=== PATIENT | female | born 1990 | race Caucasian/White ===

== ENCOUNTER → 2018-01-01 14:39 | Outpatient (CLI) | payer OTHER, SELFPAY ==
[2018-01-04 14:10] LABS: HPV Reflexed? NOT INDICATED
== END ==
PROVIDERS: Visit Provider Obstetrics & Gynecology
DX: Z12.4 Encounter for screening for malignant neoplasm of cervix (principal); Z12.72 Encounter for screening for malignant neoplasm of vagina
CPT/HCPCS: 88175; G0145

== ENCOUNTER → 2018-08-19 16:07 | Outpatient (CLI) | payer OTHER, SELFPAY ==
[2018-08-19 17:28] LABS: hCG Titer Quant., Serum 2 mIU/mL (<9 non-preg)
== END ==
PROVIDERS: Visit Provider Obstetrics & Gynecology
DX: N91.2 Amenorrhea, unspecified (principal)
CPT/HCPCS: 36415; 84702

== ENCOUNTER 2018-12-26 15:54 | Emergency (ER) | payer OTHER, SELFPAY ==
[2018-12-26 15:55] VITALS: BP 116/67; PULSE 74; RESP 16; TEMP 37.2; O2SAT 100
--- NOTE | 2018-12-26 16:30 | ED.VISSUMM ---
- ER Visit Summary Date of Service: 12/26/18 Chief Complaint: Right chest wall pain History of Present Illness: The patient is a 28 F who is on Augmentin for bursitis presents with right sided chest wall pain for 2-3 days. This is pleuritic. She has no fever or chills. She has no back pain. She has no nausea vomiting or epigastric pain. She has no leg pain calf pain or hemoptysis. Physical Examination: Patient has some upper airway congestion, she has clear lungs bilaterally she has reproducible chest wall pain right rib region. Clear lungs bilaterally. She is soft and nontender abdomen. Emergency Department Course and Treatment: Patient does not have any signs or symptoms of PE. Her lungs are clear. She likely has pleurisy. She will be treated with Toradol and Naprosyn for home. Is reassured. Discharge stable condition Impression: Pleurisy This note was generated with [employer] dictation software. It may contain incorrect words, spelling, and punctuation that were not noted in review of the chart prior to signing ED Disposition - Plan for ED Patient: Disposition: Home or Assisted Living Instructions: ED Chest Pain Pleurisy Prescriptions: Naproxen [Naprosyn] 500 mg PO BID PRN #20 tab Referrals: Care Physician,No Primary [Primary Care Provider] - 3-5 Days
--- NOTE | 2018-12-26 16:34 | ED.DCSUM_ITS ---
- ER Visit Summary Date of Service: 12/26/18 Chief Complaint: Right chest wall pain History of Present Illness: The patient is a 28 F who is on Augmentin for bursitis presents with right sided chest wall pain for 2-3 days. This is pleuritic. She has no fever or chills. She has no back pain. She has no n ausea vomiting or epigastric pain. She has no leg pain calf pain or hemoptysis. Physical Examination: Patient has some upper airway congestion, she has clear lungs bilaterally she has reproducible chest wall pain right rib region. Clear lungs bilaterally. She is soft and nontender abdomen. Emergency Department Course and Treatment: Patient does not have any signs or symptoms of PE. Her lungs are clear. She likely has pleurisy. She will be treated with Toradol and Naprosyn for home. Is reassured. Discharge stable condition Impression: Pleurisy This note was generated with [employer] dictation software. It may contain incorrect words, spelling, and punctuation that were not noted in review of the chart prior to signing ED Disposition - Plan for ED Patient: Disposition: Home or Assisted Living Instructions: ED Chest Pain Pleurisy Prescriptions: Naproxen [Naprosyn] 500 mg PO BID PRN #20 tab Referrals: Care Physician,No Primary [Primary Care Provider] - 3-5 Days
[2018-12-26] MEDS: Ketorolac 30 MG/ML Syringe IM (17:16)
[2018-12-26 17:36] VITALS: PULSE 89; RESP 14; O2SAT 100
== END 2018-12-26 17:36 | disposition home or self-care (01) ==
PROVIDERS: Emergency Provider Emergency Medicine
DX: R09.1 Pleurisy (principal); M71.9 Bursopathy, unspecified; Z79.2 Long term (current) use of antibiotics
CPT/HCPCS: 96372; 99283

== ENCOUNTER → 2019-01-02 14:05 | Outpatient (CLI) | payer OTHER, SELFPAY ==
[2019-01-07 15:26] LABS: HPV Reflexed? NOT INDICATED
== END ==
PROVIDERS: Visit Provider Obstetrics & Gynecology
DX: Z12.4 Encounter for screening for malignant neoplasm of cervix (principal)
CPT/HCPCS: 88175; G0145

== ENCOUNTER → 2019-06-18 | Outpatient (CLI) | payer OTHER, SELFPAY ==
[2019-06-18 12:21] VITALS: BMI 18.3
[2019-06-18 13:28] LABS: Absolute Lymphocyte Count 2.02 X10^3/uL (0.83-4.51); Absolute Neutrophil Count 4.6 X10^3/uL (2.0-7.7); Basophil# 0.02 X10^3/uL; Basophil% 0.3 % (0-1); Eosinophil# 0.04 X10^3/uL; Eosinophils% 0.6 % (0-5); Hematocrit 37.1 % (37-47); Hemoglobin 12.3 g/dL (12.0-15.0); Lymphocyte # 2.02 X10^3/ul (4.0); Lymphocyte % 28.5 % (19-41); Mean Corp Hgb Conc 33.2 g/dL (32-36); Mean Corpuscular Hgb 29.3 pg (27.0-32.0); Mean Corpuscular Volume 88.3 fL (81-99); Mean Platelet Vol. 10.4 fl (6.2-12.0); Monocyte# 0.42 X10^3/uL; Monocyte% 5.9 % (0-10); NRBC Flagged by Analyzer 0 % (0-5); Neutrophil # 4.56 X10^3/uL (2.7-7.7); Neutrophil % 64.4 % (47-70); Platelet Count 233 K/mm3 (150-450); RBC Distribution Width SD 42.2 fl (35.1-43.9); White Blood Count 7.1 K/mm3 (4.4-11.0)
[2019-06-18 14:42] LABS: HIV - WCH Non-Reactive (Nonreactive); Rubella IgG 90.9 IU/mL
[2019-06-18 15:28] LABS: Chlamydia Trachomatis by PCR Negative (Negative); Neisserai gonorrhoeae by PCR Negative (Negative); Probe Check PASS; Sample Adequacy Control PASS; Specimen Processing Control PASS
[2019-06-20 02:06] LABS: Rapid Plasmin Reagin (RPR) NONREACTIVE (NONREACTIVE)
== END | disposition home or self-care (01) ==
PROVIDERS: Referring Provider Nurse Practitioner Women's Health; Visit Provider Nurse Practitioner Women's Health
DX: Z34.90 Encounter for supervision of normal pregnancy, unspecified, unspecified trimester (principal)
CPT/HCPCS: 36415; 85025; 86592; 86703; 86762; 86850; 86900; 86901; 87086; 87088; 87491; 87591

== ENCOUNTER → 2019-10-16 10:47 | Outpatient (CLI) | payer OTHER, SELFPAY ==
[2019-10-16 11:09] LABS: Absolute Neutrophil Count 5.2 X10^3/uL (2.0-7.7); Basophil# 0.02 X10^3/uL; Basophil% 0.3 % (0-1); Eosinophil# 0.05 X10^3/uL; Eosinophils% 0.7 % (0-5); Hematocrit 36.7 % (37-47); Hemoglobin 11.9 g/dL (12.0-15.0); Lymphocyte % 22.5 % (19-41); Mean Corp Hgb Conc 32.4 g/dL (32-36); Mean Corpuscular Hgb 29.4 pg (27.0-32.0); Mean Corpuscular Volume 90.6 fL (81-99); Mean Platelet Vol. 10.1 fl (6.2-12.0); Monocyte# 0.49 X10^3/uL; Monocyte% 6.5 % (0-10); NRBC Flagged by Analyzer 0 % (0-5); Neutrophil # 5.23 X10^3/uL (2.7-7.7); Neutrophil % 69.2 % (47-70); Platelet Count 198 K/mm3 (150-450); RBC Distribution Width CV 12.6 % (11.6-14.6); RBC Distribution Width SD 41.4 fl (35.1-43.9); Red Blood Count 4.05 M/mm3 (4.2-5.4); White Blood Count 7.6 K/mm3 (4.4-11.0)
[2019-10-16 11:23] LABS: Glucose Challenge Gest 1H 50g 78 mg/dL (70-140)
[2019-10-16 11:47] LABS: Hepatitis B Surface Antigen Non-Reactive (Nonreactive)
== END ==
PROVIDERS: Referring Provider Nurse Practitioner Women's Health; Visit Provider Nurse Practitioner Women's Health
DX: Z34.80 Encounter for supervision of other normal pregnancy, unspecified trimester (principal)
CPT/HCPCS: 36415; 82950; 85025; 87340

== ENCOUNTER → 2020-01-01 16:27 | Outpatient (CLI) | payer OTHER, SELFPAY ==
--- NOTE | 2020-01-01 16:29 | US_ITS ---
STUDY: SECOND AND THIRD TRIMESTER OBSTETRICAL ULTRASOUND - LIMITED REASON FOR EXAM: Female, 29 years old. Growth. LMP: April 09, 2019. PRIOR ULTRASOUND: None. TECHNIQUE: Transabdominal TECHNICAL QUALITY: Adequate. FINDINGS: There is a single intrauterine fetus. The fetus is in a cephalic presentation. There is demonstrated cardiac activity with a heart rate of 136 bpm. There is a normal amniotic fluid volume. The largest amniotic fluid pocket measures 5.67 cm. The amniotic fluid index (MADELINE) is 12.49 cm. Debris is seen within the amniotic fluid. The placenta is 3 There are Grade 3 placental changes. The cervix is obscured. BIOMETRY: BPD: 8.53 cm: 34 weeks, 3 days HC: 31.37 cm: 35 weeks, 2 days AC: 31.91 cm: 35 weeks, 6 days FL: 7.05 cm: 36 weeks, 1 days Age by LMP: 38 weeks, 1 days. PAULINA by LMP: January 14, 2020. age by current US: 35 weeks, 3 days. PAULINA by current US: February 02, 2020. Estimated weight: 2740 grams, +/- 400 grams, 10 percentile. US/OB Limited With Biometrics IMPRESSION: 1. Live single intrauterine at 35 weeks, 3 days. PAULINA is February 02, 2020. 2. EFW of 2740 g. 3. MADELINE of 12.49 cm. There is debris within the amniotic fluid. 4. Anterior grade 3 placenta. 5. Vertex presentation. Electronically Signed: Christian Zhang DO at 18:01 EDT Tel [phone], Service support ,
== END ==
PROVIDERS: Referring Provider Obstetrics & Gynecology; Visit Provider Obstetrics & Gynecology
DX: O26.849 Uterine size-date discrepancy, unspecified trimester (principal); Z3A.00 Weeks of gestation of pregnancy not specified
CPT/HCPCS: 76816

== ENCOUNTER 2020-01-05 16:45 | Outpatient (CLI) | payer OTHER, SELFPAY ==
--- NOTE | 2020-01-05 15:54 | US_ITS ---
STUDY: OBSTETRICAL ULTRASOUND - BIOPHYSICAL PROFILE REASON FOR EXAM: Female, 29 years old. Her well-being. MADELINE. LMP: April 09, 2019 PRIOR ULTRASOUND: January 01, 2020 TECHNIQUE: Transabdominal TECHNICAL QUALITY: Adequate. FINDINGS: There is a single intrauterine fetus. The fetus is in a cephalic presentation. There is demonstrated cardiac activity with a heart rate of 128 bpm. There is a normal amniotic fluid volume. The largest amniotic fluid pocket measures 5.29 cm. The amniotic fluid index (MADELINE) is 10.58 cm. The placenta is anterior in location and is not low lying. There are Grade 3 placental changes. Age by LMP: 38 weeks, 5 days. PAULINA by LMP: January 14, 2020. age by prior US: 36 weeks, 0 days. PAULINA by prior US: February 02, 2020. Gender: Indeterminant BIOPHYSICAL PROFILE: Breathing Movements (FBM): 0 Gross Body Movements (GBM): 2 Tone (FT): 2 Amniotic Fluid Volume (AFV): 2 TOTAL SCORE: 6 / 8 US/Biophysical Profile IMPRESSION: biophysical profile of 03/22. Electronically Signed: Christian Zhang DO at 16:51 EDT Tel [phone], Service support ,
[2020-01-05 16:59] VITALS: BMI 22.0
[2020-01-05 17:04] VITALS: PULSE 81; TEMP 36.9; O2SAT 98
[2020-01-05 17:07] VITALS: TEMP 36.9; O2SAT 98
--- NOTE | 2020-01-07 07:09 | OB.TRI.PN ---
Progress Notes Date of Service: 01/05/20 Progress Note: NST secondary to IUGR and 6/8 BPP FHT: 120 Moderate variability reactive no decelerations category I tracing [place]: irregular Contractions Multi Select Codes - Urinary/Genital Urinary/Genital CPT Codes: 90229-40 non-stress test Interp
== END 2020-01-05 17:22 | disposition home or self-care (01) ==
LOC: US 16:54 → WPOUT 16:55 → OBT 16:55
PROVIDERS: Referring Provider Obstetrics & Gynecology; Visit Provider Obstetrics & Gynecology
DX: O36.5990 Maternal care for other known or suspected poor fetal growth, unspecified trimester, not applicable or unspecified (principal); Z3A.00 Weeks of gestation of pregnancy not specified
CPT/HCPCS: 59025; 59050; 76818; 99218; G0378

== ENCOUNTER 2020-01-07 06:55 | Inpatient (IN) | payer OTHER, SELFPAY ==
[2020-01-07] VITALS (36 sets, daily range): BP systolic 87–122; BP diastolic 49–78; PULSE 60–100; RESP 16; TEMP 36.7–37.4; O2SAT 92–100; BMI 21.8
--- NOTE | 2020-01-07 07:24 | HP.PCM_ITS ---
- Problem List (1) Uterine size-date discrepancy, third trimester Status: Acute Comment: growth scan ordered, NST & MADELINE 01/04, IOL 39 weeks (2) Contraception management Status: Acute Comment: Wants pp BTO (3) GBS (group B streptococcus) UTI complicating Status: Acute Qualifiers: Comment: Treated 1st trim and treat in labor (4) Status: Acute Qualifiers: Comment: Declines genetic, ntd, and carrier screen; normal anatomy (5) Supervision of other normal Status: Acute Comment: PRR PAULINA 01/14/20 surprise PC: Vesna Ruiz Casey. Spouse:Dean History Date of Admission: 07/11/17 Final PAULINA: 01/14/20 Final PAULINA Source: US <20 weeks Gestational age: 39 Weeks and 0 Days History of this : This is a 29 year-old, , at 39 weeks gestational age for induction of labor secondary to IUGR. Surgical History: Surgical History (Last Reviewed 01/01/20 @ 15:43 by Ashley Pappas) S/P wisdom tooth extraction Z98.818 Allergies No Known Allergies Allergy (Verified 01/07/20 07:22) Home Medications: Home Medications Vits [Prenatabs FA ] 1 tab PO DAILY 07/11/17 Smoking Status: Never smoker NST - FHR Rate Baby A Baseline: 120 Variability:: Moderate Accelerations:: 15 x 15 Decelerations:: None NST Reactive:: Yes FHR Category:: Category I Uterine Activity:: Irregular History Past Pregnancies: Past Pregnancies Pregancy History 7 Elective abortions Hx Para 3 Spontaneous abortions Hx # Term Pregnancies Ectopic pregnancies Hx # Pregnancies Multiple births # of living children 3 Past Pregnancies Del. Date Name GA/Weeks Outcome Route Bth Weight Gen Labor Lgth Anesthesia Del Locatn Provider FOB 06/18/14 Sara 41 live - full term 5lbs 9oz Female 12 hours epidural [facility] Dr. Tammy Moran 07/19/16 Shantel 38 live - full term 5lbs 10oz Female epidural [facility] Dr. Tammy Moran 07/11/17 Aston 40 live - full term 6lbs 8oz Female epidural [facility] Dr. Tammy Moran Delivery Date: 06/18/14 On 06/18/19 @ 11:42 MianAshley gonzalez No issues during or delivery. Delivery Date: 07/19/16 On 06/18/19 @ 11:44 Mian,Ashley No issues during or delivery. Delivery Date: 07/11/17 On 06/18/19 @ 11:46 Mian,Ashley No issues during , 2nd degree tear Labs: Social History Alleged father Dean Rivas Hx Smoking No Smoking Status Never smoker Expected Infant Delivery Method: Spontaneous Vaginal Review of Systems Constitutional: Denies: Fever, Malaise Eyes: Denies: Blurred vision, Vision Change HEENT: Denies: Head Aches, Visual Changes Cardiovascular: Denies: Chest Pain, Palpitations Respiratory: Denies: Cough, Shortness of Breath, Wheezing Gastrointestinal: Denies: Abdominal Pain, Diarrhea, Nausea, Vomiting Genitourinary: Denies: Dysuria, Hematuria Musculoskeletal: Denies: Joint Pain, Muscle pain Skin: Denies: Lesions, Rash Neurological: Denies: Blurred vision, Focal weakness, Headaches Psychiatric: Denies: Anxiety, Depression Endocrine: Denies: Heat/ Cold Intolerance Hematologic/ Lymphatic: Denies: Easy Bruising, Easy Bleeding Physical Exam General: Alert, Cooperative, No apparent distress HEENT: Atraumatic, Normocephalic. Negative for: Thyromegaly, Lymphadenopathy Cardiovascular: Regular rate Lungs: Normal air movement Abdomen: Soft, Non Tender, Gravid Neurological: Deep Tendon Reflexes 2+/4 and Symmetrical, Neuro grossly intact. 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 Negative for: Vulvar lesions Estimated gestational size: Small for gestational age Presentation: Cephalic Assessment/Plan All Active Problems (Last Reviewed 01/01/20 @ 15:43 by Ashley Pappas) Uterine size-date discrepancy, third trimester (Acute) Contraception management (Acute) GBS (group B streptococcus) UTI complicating (Acute) (Acute) Supervision of other normal (Acute) This is a 29 year-old, G 4P3, at 39 weeks gestational age once for induction of labor secondary to IUGR Patient presents IOL, plan management for , pitocin/AROM when able. Pain management: Plans epidural. GBS positive plan penicillin. Management of any complications: IUGR I have reviewed the [facility] and made any clinically relevant updates.
[2020-01-07] MEDS: Lactated Ringers 1,000 ML 50 ML IV (07:35)
[2020-01-07 07:49] LABS: Absolute Lymphocyte Count 2.36 X10^3/uL (0.83-4.51); Absolute Neutrophil Count 5.2 X10^3/uL (2.0-7.7); Basophil# 0.03 X10^3/uL; Basophil% 0.4 % (0-1); Eosinophil# 0.04 X10^3/uL; Eosinophils% 0.5 % (0-5); Hematocrit 34.7 % (37-47); Hemoglobin 11.3 g/dL (12.0-15.0); Lymphocyte # 2.36 X10^3/ul (4.0); Mean Corp Hgb Conc 32.6 g/dL (32-36); Mean Corpuscular Hgb 29.3 pg (27.0-32.0); Mean Corpuscular Volume 89.9 fL (81-99); Mean Platelet Vol. 10.9 fl (6.2-12.0); Monocyte# 0.63 X10^3/uL; Monocyte% 7.5 % (0-10); NRBC Flagged by Analyzer 0 % (0-5); Neutrophil # 5.22 X10^3/uL (2.7-7.7); Neutrophil % 61.8 % (47-70); Platelet Count 143 K/mm3 (150-450); RBC Distribution Width CV 12.2 % (11.6-14.6); RBC Distribution Width SD 40.1 fl (35.1-43.9); Red Blood Count 3.86 M/mm3 (4.2-5.4); White Blood Count 8.4 K/mm3 (4.4-11.0)
[2020-01-07] MEDS: Oxytocin 30 units/NS 500 ml 30 UNITS/500 ML IV.SOLN IV (07:55)
[2020-01-07] MEDS: Lactated Ringers 500 ML 999 ML IV (10:31)
[2020-01-07] MEDS: fentaNYL-bupivacaine (epidural) 100 ML BAG EPIDURAL (11:37)
[2020-01-07] MEDS: Ondansetron 4 MG/2 ML Vial IV (12:56)
[2020-01-07] MEDS: Oxytocin 30 units/NS 500 ml 30 UNITS/500 ML IV.SOLN 334 UNITS IV (15:34)
--- NOTE | 2020-01-07 15:42 | PCM.OPRPT ---
Problem List (1) Uterine size-date discrepancy, third trimester Status: Acute Comment: growth scan ordered, NST & MADELINE 01/04, IOL 39 weeks (2) Contraception management Status: Acute Comment: Wants pp BTO (3) GBS (group B streptococcus) UTI complicating Status: Acute Qualifiers: Comment: Treated 1st trim and treat in labor (4) Status: Acute Qualifiers: Comment: Declines genetic, ntd, and carrier screen; normal anatomy (5) Supervision of other normal Status: Acute Comment: PRR PAULINA 01/14/20 surprise PC: Vesna Ruiz Casey. Spouse:Dean Vaginal Delivery Maternal Presentation: Medically Indicated Induction iol iugr Method of Induction: Pitocin Amniotic Membrane Rupture Type: Artificial Amniotic Fluid Description: Clear Final PAULINA: 01/14/20 Gestational age: 39 Weeks and 1 Days Date of Procedure: 01/07/20 Pre-Operative Diagnosis: iol iugr Post-Operative Diagnosis: same Surgery/ Procedure Performed: Spontaneous Vaginal Delivery Type of Anesthesia: Epidural Description of Procedure: Patient began pushing and delivered the head in the JORGE ALBERTO presentation. The head was delivered atraumatically cord x2 was seen and had to be cut on the perineum after the anterior shoulder was delivered. The anterior and posterior shoulders delivered without complication followed by the rest of the and the infant was placed on the maternal abdomen. Delayed cord clamping was employed for approximately 60 seconds. Cord was clamped and cut and gentle traction was applied to the cord and the placenta delivered spontaneously immediately following it was noted to be intact with three-vessel cord. The perineum and vagina were inspected and noted to have no laceration. EBL was 100 cc. Patient and infant tolerated delivery well. Presentation: JORGE ALBERTO Placental Delivery Description: Spontaneous Placenta Disposition: [facility] Cord Entanglement: Around neck x 2, tight Estimated Blood Loss: 100 A gender: Male Episiotomy Description: None Laceration: None Medications given after delivery: IV Pitocin Complications: None Multi Select Codes - Urinary/Genital Urinary/Genital CPT Codes: 46443 Vaginal Delivery+ PP Care(ABDIAZIZ)
[2020-01-08] MEDS: Acetaminophen 500 MG Tablet 1000 MG PO (04:02)
[2020-01-08 04:13] VITALS: BP 101/62; PULSE 78; RESP 16; TEMP 36.6; O2SAT 97
[2020-01-08] MEDS: Naproxen 250 MG Tablet 500 MG PO (05:44)
--- NOTE | 2020-01-08 08:02 | PCM.PN.OB ---
Subjective: Doing well, no complaints.Pain controlled. Denies CP, SOB, N,V. Ambulating well, tolerating po. Lochia moderate, going well. - Physical Exam Vitals/I&O's: Vital Signs Temp Pulse Resp BP Pulse Ox 97.8 F 78 16 101/62 97 01/08/20 04:13 01/08/20 04:13 01/08/20 04:13 01/08/20 04:13 01/08/20 04:13 Oxygen Delivery Method Room Air Weight: 123 lb 6.4 oz Body Mass Index (BMI) 21.8 Intake and Output for Last 24 Hours 01/06/20 01/07/20 01/08/20 23:59 23:59 23:59 Intake Total 1901.40 / 1901.40 Output Total 2300 / 2300 Balance -398.60 / -398.60 General: Alert, Oriented x3 Abdomen: Soft, Non Tender, - - FF below U Laboratory Results 01/07/20 07:35: Blood Type A POSITIVE, Antibody Screen NEGATIVE Current Medications Acetaminophen (Tylenol) 1,000 mg PO Q8H PRN PRN PRN Reason: Pain Score 1-3/10 Last Admin: 01/08/20 04:02 Dose: 1,000 mg Documented by: Bisacodyl (Dulcolax) 10 mg RECTAL UD PRN PRN Reason: If no BM Dibucaine (Dibucaine) 1 applic TOPICAL TID PRN PRN; Protocol PRN Reason: Discomfort Hydrocortisone (Hytone) 1 applic TOPICAL TID PRN PRN; Protocol PRN Reason: Discomfort Methylergonovine Maleate (Methergine) 0.2 mg IM X1 PRN PRN Reason: Excess bleeding/uterine atony Naproxen (Naprosyn) 500 mg PO Q8H PRN PRN PRN Reason: Pain Score 1-3/10 Last Admin: 01/08/20 05:44 Dose: 500 mg Documented by: Ondansetron HCl (Zofran) 4 mg IV Q4H PRN PRN PRN Reason: Nausea Oxycodone HCl (Oxyir) 5 - 10 mg PO Q4H PRN PRN PRN Reason: Pain Score 4-10/10 Multivit/Folic Acid/Iron (Prenatabs Fa) 1 tablet PO DAILY@1200 BABAK Senna/Docusate Sodium (Senokot-S, Jennifer-Colace) 1 - 2 tablet PO DAILY PRN PRN PRN Reason: Constipation Simethicone (Mylicon) 80 mg PO PCHS PRN PRN Reason: Indigestion/Stomach pain Sodium Chloride () 5 - 15 ml IV UD PRN PRN Reason: SALINE FLUSH Medical Necessity - Tobacco Use Smoking Status: Never smoker Assessment/Plan All Active Problems (Last Reviewed 01/01/20 @ 15:43 by Ashley Pappas) Uterine size-date discrepancy, third trimester (Acute) Contraception management (Acute) GBS (group B streptococcus) UTI complicating (Acute) (Acute) Supervision of other normal (Acute) s/p PPD # 1 1. routine post delivery care 2. breast feeding- support given 3. rh positive 4. rubella immune 5. Plans home today
--- NOTE | 2020-01-08 08:03 | DCINST_ITS ---
Additional Instructions: If you experience any of the following, contact your healthcare provider. * Bleeding that soaks a pad every hour for 2 hours * Fever 100.4 or higher * Unrelieved incision or abdominal pain * Swelling, redness, discharge or bleeding from your incision or episiotomy site * Your incision begins to separate * Problems urinating (including inability to urinate or burning while urinating). * Visual changes * Severe headache * Flu-like symptoms * Pain or redness in one of both of your breasts * Pain, warmth, tenderness or swelling in your legs, especially the calf area * Frequent nausea and vomiting * Symptoms of depression or anxiety If you experience any of the following, call 911 or go to the nearest Emergency Room. * Chest pain * Problems breathing * Seizure activity * Partial or complete paralysis of a body part, slurred speech, weakness or drooping of the face, or a sudden inability to walk or hold your balance Allergies/Adverse Reactions: Allergies No Known Allergies Allergy (Verified 01/07/20 07:22) Medications to take at Discharge Vits [Prenatabs FA ] 1 tab PO DAILY 07/11/17 Primary Care Physician: Care Physician,No Primary [Primary Care Provider] - Test Results: Test results from this visit will be discussed in further detail at your follow- up appointment, if applicable.
--- NOTE | 2020-01-08 08:03 | PCM.DCVAG ---
Additional Instructions: If you experience any of the following, contact your healthcare provider. Bleeding that soaks a pad every hour for 2 hours Fever 100.4 or higher Unrelieved incision or abdominal pain Swelling, redness, discharge or bleeding from your incision or episiotomy site Your incision begins to separate Problems urinating (including inability to urinate or burning while urinating). Visual changes Severe headache Flu-like symptoms Pain or redness in one of both of your breasts Pain, warmth, tenderness or swelling in your legs, especially the calf area Frequent nausea and vomiting Symptoms of depression or anxiety If you experience any of the following, call 911 or go to the nearest Emergency Room. Chest pain Problems breathing Seizure activity Partial or complete paralysis of a body part, slurred speech, weakness or drooping of the face, or a sudden inability to walk or hold your balance Allergies/Adverse Reactions: Allergies No Known Allergies Allergy (Verified 01/07/20 07:22) Medications to take at Discharge Vits [Prenatabs FA ] 1 tab PO DAILY 07/11/17 Primary Care Physician: Care Physician,No Primary [Primary Care Provider] - Test Results: Test results from this visit will be discussed in further detail at your follow-up appointment, if applicable.
[2020-01-08 08:27] VITALS: BP 107/60; PULSE 66; RESP 16; TEMP 36.5
[2020-01-08 12:08] VITALS: BP 96/55; PULSE 68; RESP 16; TEMP 36.5
[2020-01-08] MEDS: Prenatal Vits Tablet 1 TABLET PO (12:21)
[2020-01-08] MEDS: Senna/Docusate Sodium 1 Tablet PO (12:21)
[2020-01-08 17:20] VITALS: BP 97/57; PULSE 70; RESP 16; TEMP 37
[2020-01-08 17:36] VITALS: BP 97/57; PULSE 70; RESP 16; TEMP 37
== END 2020-01-08 18:20 | disposition home or self-care (01) | DRG 807 ==
PROVIDERS: Admitting Provider Obstetrics & Gynecology; Referring Provider Obstetrics & Gynecology; Visit Provider Obstetrics & Gynecology
DX: O36.5930 Maternal care for other known or suspected poor fetal growth, third trimester, not applicable or unspecified (principal); Z37.0 Single live birth; Z3A.39 39 weeks gestation of pregnancy; O99.824 Streptococcus B carrier state complicating childbirth; O69.1XX0 Labor and delivery complicated by cord around neck, with compression, not applicable or unspecified
CPT/HCPCS: 59025; 59050; 85025; 86850; 86900; 86901; 99218; J7120; G0378; J2405

== ENCOUNTER → 2020-01-31 10:50 | Outpatient (CLI) | payer OTHER, SELFPAY ==
[2020-01-07 07:21] VITALS: BMI 21.8
== END ==
PROVIDERS: Referring Provider Obstetrics & Gynecology; Visit Provider Obstetrics & Gynecology
DX: P92.5 Neonatal difficulty in feeding at breast (principal)
CPT/HCPCS: 96158

== ENCOUNTER → 2023-01-24 | Outpatient (CLI) | payer OTHER, SELFPAY ==
[2023-02-01 11:09] LABS: HPV APTIMA, High Risk Negative (Negative)
== END | disposition home or self-care (01) ==
LOC: LABSPEC 13:28
PROVIDERS: Referring Provider Nurse Practitioner Women's Health; Visit Provider Nurse Practitioner Women's Health
DX: N89.8 Other specified noninflammatory disorders of vagina (principal); Z12.4 Encounter for screening for malignant neoplasm of cervix
CPT/HCPCS: 87070; 87205; 87624; 88175; G0145

== ENCOUNTER → 2024-07-22 | Outpatient (CLI) | payer OTHER, SELFPAY ==
--- NOTE | 2024-07-22 14:08 | RAD_ITS ---
INDICATION: Radiculopathy EXAMINATION/TECHNIQUE: X-RAY - XR Spine Cervical 4 Views COMPARISON: No relevant prior comparison study available FINDINGS: VERTEBRAE: Preserved vertebral body height. No fracture. No spondylolisthesis. Preservation of the normal cervical lordosis. No significant facet arthropathy. DISCS: Disc spaces are maintained. NECK SOFT TISSUES: No prevertebral soft tissue widening. LUNG APICES: Clear. RAD/Cerv Spine 2 or 3 Views IMPRESSION: No evidence of acute fracture or spondylolisthesis. Electronically Signed: Kelly Vázquez MD at 14:23 EDT ,
[2024-07-22 15:15] LABS: Absolute Lymphocyte Count 1.51 X10^3/uL (0.83-4.51); Absolute Neutrophil Count 4.1 X10^3/uL (2.0-7.7); Basophil# 0.03 X10^3/uL; Basophil% 0.5 % (0-1); Eosinophil# 0.01 X10^3/uL; Eosinophils% 0.2 % (0-5); Hematocrit 38.5 % (37-47); Hemoglobin 12.1 g/dL (12.0-15.0); Lymphocyte # 1.51 X10^3/ul (0.83-4.51); Lymphocyte % 25.5 % (19-41); Mean Corp Hgb Conc 31.4 g/dL (32-36); Mean Corpuscular Hgb 28.1 pg (27.0-32.0); Mean Corpuscular Volume 89.5 fL (81-99); Mean Platelet Vol. 10.5 fl (6.2-12.0); Monocyte# 0.28 X10^3/uL; Monocyte% 4.7 % (0-10); NRBC Flagged by Analyzer 0 % (0-5); Neutrophil # 4.07 X10^3/uL (2.7-7.7); Neutrophil % 68.8 % (47-70); Platelet Count 287 K/mm3 (150-450); RBC Distribution Width CV 12.3 % (11.6-14.6); RBC Distribution Width SD 40.6 fl (35.1-43.9); White Blood Count 5.9 K/mm3 (4.4-11.0)
[2024-07-22 15:42] LABS: Erythrocyte Sedimentation Rate 1 mm/hr (0-30)
[2024-07-22 15:59] LABS: ALB/GLOB Ratio 1.3 RATIO (0.9-2.4); AST(SGOT) 10 U/L (15-37); Alanine Aminotransfer ALT/SGPT 14 U/L (13-56); Albumin, Serum 4.5 g/dL (3.2-5.0); Alkaline Phosphatase 42 U/L (45-117); Anion Gap 9 (5-15); BUN 11 mg/dL (7-18); BUN/Creat Ratio 15.5 RATIO (10-20); CRP < 2.90 mg/L (0.0-3.0); Calcium,Total 9.5 mg/dL (8.5-10.1); Chloride 103 mmol/L (98-107); Creatinine, Serum 0.71 mg/dL (0.55-1.02); EST Glomerular Filtration Rate 101 mL/min (>60); Est Glom Filt Rate - Afr Amer 122 mL/min (>60); Globulin 3.5 g/dL (2.2-4.2); Glucose 96 mg/dL (74-106); Potassium 3.5 mmol/L (3.5-5.1); Sodium Level 136 mmol/L (136-145); T4 Free Direct 1.14 ng/dL (0.76-1.46)
[2024-07-22 16:00] LABS: HIV - WCH Non-Reactive (Nonreactive); Vitamin B12 538 pg/mL (211-911)
[2024-07-24 11:10] LABS: ANTINUCLEAR ANTIBODIES DIRECT Negative (Negative)
== END | disposition home or self-care (01) ==
PROVIDERS: PCP Internal Medicine; Referring Provider Internal Medicine; Visit Provider Internal Medicine
DX: G62.9 Polyneuropathy, unspecified (principal)
CPT/HCPCS: 36415; 72040; 80053; 82607; 84439; 84443; 85025; 85652; 86038; 86140; 86225; 86235; 86703

== ENCOUNTER → 2024-08-19 | Outpatient (CLI) | payer OTHER, SELFPAY ==
--- NOTE | 2024-08-19 08:45 | US_ITS ---
STUDY: ULTRASOUND BREAST - RIGHT REASON FOR EXAM: Female, 33 years old. Palpable lump in the right breast. TECHNIQUE: Axial and longitudinal images of the RIGHT breast were performed with a high resolution ultrasound transducer. # OF IMAGES: 80 COMPARISON: Comparison is made with prior mammogram done earlier today. FINDINGS: RIGHT Breast: There is a 5 mm x 4 mm x 2 mm well-defined hypoechoic nodule at the 4:00 position of the breast at 2 cm from nipple. This most likely represents a small fibroadenoma. IMPRESSION: 5 mm x 4 mm x 2 mm well-defined nodule at the 4:00 position breast at 2 cm from the nipple. This most likely represents a fibroadenoma. Six-month follow-up recommended. ASSESSMENT CATEGORY: BIRADS Category 3: Probably Benign - Short-Interval Follow-up Suggested. A letter regarding these results will be sent to the patient by the facility within 30 days. Electronically Signed: Omar Daniels MD at 14:01 EST , STUDY: ULTRASOUND BREAST - LEFT REASON FOR EXAM: Female, 33 years old. Left breast lump. TECHNIQUE: Axial and longitudinal images of the LEFT breast were performed with a high resolution ultrasound transducer. # OF IMAGES: 80 COMPARISON: Comparison is made with prior mammogram done earlier today. FINDINGS: LEFT Breast: There is a 1.9 cm x 2 cm x 0.7 cm well-defined hypoechoic nodule at the 11:00 position of the breast at 2 cm from the nipple. This most likely represents a fibroadenoma although biopsy is recommended. US/Breast Complete Unilateral IMPRESSION: 1.9 cm x 2 cm x 0.7 cm well-defined hypoechoic solid nodule at the 11:00 position of the breast at 2 cm from nipple. This most likely represents a fibroadenoma although biopsy recommended. ASSESSMENT CATEGORY: BIRADS Category 4: Suspicious - Biopsy Should Be Considered. A letter regarding these results will be sent to the patient by the facility within 30 days. Electronically Signed: Omar Daniels MD at 14:02 EST ,
--- NOTE | 2024-08-19 08:45 | BI_ITS ---
MAMMOGRAPHY - BILATERAL DIAGNOSTIC REASON FOR EXAM: Female, 33 years old. Ordering physician felt bilateral breast lumps. PERTINENT HISTORY: Non-contributory. TECHNIQUE: Digital bilateral breast marlo (3D mammographic acquisition) in the CC and MLO projections. 2-D mediolateral oblique (MLO) and craniocaudad (CC) views of both breasts were obtained. CAD: Full Field Digital Mammography with Computer Added Detection was performed. COMPARISON: None. Baseline examination. FINDINGS: Breast Composition: The breasts are extremely dense, which lowers the sensitivity of mammography. There are no dominant masses or suspicious calcifications. No other significant abnormalities are identified. BI/DIAG MAMM W/CAD, BILAT IMPRESSION: Negative diagnostic mammogram. With the patient''s history of bilateral breast lumps, correlation with ultrasound recommended. ASSESSMENT CATEGORY: BIRADS Category 0: Incomplete. Need additional imaging evaluation. A letter regarding these results will be sent to the patient by the facility within 30 days. Approximately 10% of breast cancers are not detected by mammography. A normal mammogram should not delay biopsy of a clinically suspicious abnormality. Electronically Signed: Omar Daniels MD at 10:05 EST ,
== END | disposition home or self-care (01) ==
PROVIDERS: PCP Internal Medicine; Referring Provider Nurse Practitioner Family; Visit Provider Nurse Practitioner Family
DX: N63.10 Unspecified lump in the right breast, unspecified quadrant (principal); N63.20 Unspecified lump in the left breast, unspecified quadrant; Z12.31 Encounter for screening mammogram for malignant neoplasm of breast
CPT/HCPCS: 76641; 77062; 77066; G0279

== ENCOUNTER → 2024-08-20 | Outpatient (CLI) | payer OTHER, SELFPAY | END | disposition home or self-care (01) | PROVIDERS: PCP Internal Medicine; Referring Provider Internal Medicine; Visit Provider Internal Medicine | DX: G62.9 Polyneuropathy, unspecified (principal) | CPT/HCPCS: 95886; 95913 ==

== ENCOUNTER → 2024-08-22 | Outpatient (CLI) | payer OTHER, SELFPAY | END | disposition home or self-care (01) | PROVIDERS: PCP Internal Medicine; Referring Provider Surgery; Visit Provider Surgery | DX: R92.8 Other abnormal and inconclusive findings on diagnostic imaging of breast (principal) | CPT/HCPCS: 88305 ==